=== PATIENT | male | born 1985 | race Caucasian/White ===

== ENCOUNTER 2016-09-09 00:49 | Emergency (ER) | payer BC, OTHER ==
[~2016-09-09] VITALS: Ht 167.6 cm; Wt 81.6 kg
--- NOTE | 2016-09-09 00:55 | NUR ---
PT BIB [facility] WITH A C/O ANXIETY/ PANIC ATTACK. PT APPEARS VERY ANXIOUS. PT STATED THAT HE TOOK MARIJUANA TODAY AND STARTED FEELING ANXIOUS. PT WAS TRIAGED IN ROOM #2. PT WAS PLACED ON THE MONITOR AND CONTINUOUS PULSE OX.
[2016-09-09] MEDS ORDERED: LORAZEPAM INJ 2 MG/ML VIAL ONE (01:02)
--- NOTE | 2016-09-09 01:25 | NUR ---
PT'S BROTHER IS AT THE BEDSIDE.
[2016-09-09] MEDS ORDERED: LORAZEPAM INJ 2 MG/ML VIAL IM ONE (01:30)
--- NOTE | 2016-09-09 02:03 | NUR ---
Patient discharged to home in stable condition. Written and verbal after care instructions given. Patient verbalizes understanding of instruction. PT'S BROTHER IS DRIVING PT HOME. VSS. RESP EVEN AND UNLABORED. NO S/S OF ANXIETY. PT AMBULATED OUT WITH A STEADY GAIT.
[2016-09-09 02:05] VITALS: BP 111/65
== END 2016-09-09 02:04 | disposition home or self-care (01) ==
LOC: ER 00:52
DX: F41.9 Anxiety disorder, unspecified (principal); F12.10 Cannabis abuse, uncomplicated
CPT/HCPCS: 96372; 99283; A4606; J2060; Z7610